=== PATIENT | female | born 1965 | race Caucasian/White ===

== ENCOUNTER → 2017-03-02 | Outpatient (CLI) | payer OTHER ==
[~2017-03-02] MED LIST: FLOVENT 11110 MCG/PU INH; LEXAPRO 10 MG T10 MG PO; PROTONIX40 MG PO; SINGULAIR10 MG PO; [UNRECOGNIZED DRUG - OTHER] PO
--- NOTE | 2017-03-02 16:24 | RADIOLOGY REPORT PS360 ---
US RUQ-(ABD LTD)1ORGAN/QUAD/FU HISTORY: ELEVATED LIVER ENZYMES ORDERING PHYSICIAN: Jimbo Fall MD PATIENT AGE: 51 years COMPARISON: None FINDINGS: PANCREAS:Unremarkable. No obvious mass or abnormal fluid collection. No ductal dilatation LIVER:There is uniform increased echogenicity of the liver with poor through transmission of sound consistent with hepatic steatosis. No focal liver lesions demonstrated. RIGHT KIDNEY:Unremarkable. Normal size and echogenicity. No hydronephrosis Gallbladder: Status post cholecystectomy. No biliary dilatation. Common bile duct is 4 mm. IMPRESSION: Prior cholecystectomy with fatty liver otherwise negative right upper quadrant ultrasound
== END ==
LOC: RAD 07:48
DX: R94.5 Abnormal results of liver function studies (principal)